=== PATIENT | male | born 1940 | race Caucasian/White ===

== ENCOUNTER 2017-09-24 10:48 | Observation (INO) | payer MEDICARE, MEDICAID ==
[~2017-09-24] VITALS: Ht 182.9 cm; Wt 76.7 kg
[~2017-09-24 10:48] MED LIST: ACETAMINOPHEN325 M1 PO; AMBIEN 10 MG TA10 MG PO; ATIVAN1 MG PO; CLARITIN10 M2 PO; DEBROX OTIC; FISH OIL 1,0001 EAC5 PO; LISINOPRIL5 MG PO; LOPERAMIDE 2 MG2 M1 PO; LOPID600 MG PO; MULTIVITAMINS PO; PRILOSEC 20 MG20 MG PO; SAW PALMETTO500 MG PO; TOPROL XL50 MG PO; VICODIN PO
[2017-09-24 10:53] VITALS: BP 129/81
[2017-09-24 11:22] LABS: ABSOLUTE EOSINOPHILS 0.1 thou/uL (0.0-0.7); ABSOLUTE LYMPHOCYTES 3.2 thou/uL (0.8-5.3); ABSOLUTE MONOCYTES 1.1 thou/uL (0.0-1.2); ABSOLUTE NEUTROPHILS 4.3 thou/uL (1.6-8.1); BASOPHILS 0.6 %; EOSINOPHILS 1.5 %; HEMATOCRIT 46.4 % (42.0-52.0); LYMPHOCYTES 36.2 %; MCH 32.3 pg (26.0-34.0); MCHC 34.5 g/dL (28.0-37.0); MCV 93.7 fL (80.0-100.0); MONOCYTES 12.9 %; NUCLEATED RBCS 0 /100WBC; PLATELET COUNT* 163 thou/uL (150-400); POLYS 48.8 %; RBC 4.95 mil/uL (4.50-6.00); RDW-CV 13.2 % (10.5-14.5); WBC 8.8 thou/uL (4.0-11.0)
[2017-09-24 11:35] LABS: APTT 26.7 Seconds (25.0-31.3); INR 1.1; PROTIME 10.7 Seconds (9.20-11.50)
[2017-09-24 11:42] LABS: ANION GAP 8 mmol/L (7-16); BUN 11 mg/dL (7-18); CALCIUM 9.6 mg/dL (8.5-10.1); CHLORIDE 105 mmol/L (98-107); CO2 27 mmol/L (21-32); CREATININE 0.9 mg/dL (0.6-1.3); GLUCOSE 120 mg/dL (70-99); POTASSIUM 3.9 mmol/L (3.5-5.1); SODIUM 140 mmol/L (136-145)
[2017-09-24 12:04] LABS: ALBUMIN 3.5 g/dL (3.4-5.0); ALKALINE PHOSPHATASE 69 U/L (46-116); CK-MB MASS 0.8 ng/mL (<0.5-3.6); LIPASE 178 U/L (73-393); MAGNESIUM 1.9 mg/dL (1.8-2.4); NT-PRO BRAIN NAT PEPTIDE 577 pg/mL (<300); SGOT 24 U/L (15-37); SGPT 32 U/L (30-65); TOTAL BILIRUBIN 0.6 mg/dL (<0.1-1.0); TOTAL PROTEIN 7.5 g/dL (6.4-8.2); TROPONIN-I LEVEL <0.06 ng/mL (<0.06)
[2017-09-24 14:03] VITALS: BP 143/80
[2017-09-24 14:29] VITALS: BP 149/72
--- NOTE | 2017-09-24 14:34 | EKG ---
[place] [address] ELECTROCARDIOGRAM REPORT Name: FAN NEW Room: [address] IN ..#: [id number] Admission: 09/24/17 Attend Phys: Fan Garcia MD Discharge: Date of : 38 Report #: [id number] THIS REPORT FOR: //name// [facility] ED Test Date: 2017-09-24 Test Time: 11:08:17 Pat Name: FAN NEW Department: Room: Gender: Emergency Veterinary Assistant: Jamie CASTELLON : 1940 Requested By: Bony Johnson Order Number: [id number] MD: Jaden Beach Measurements Intervals [place] Rate: 116 P: ID: QRS: 67 QRSD: 129 T: -29 QT: 329 QTc: 458 Interpretive Statements Atrial fibrillation Ventricular bigeminy Right bundle branch block Compared to ECG 02/17/2008 19:45:06 Ventricular premature complex(es) now present Right bundle-branch block now present Sinus tachycardia no longer present Right-axis deviation no longer present Incomplete right bundle-branch block no longer present Electronically Signed On 09-24-2017 14:34:14 CDT by Jaden Beach [email or web address] <ELECTRONICALLY SIGNED> By: Jaden Beach MD, FACC 09/24/17 1434 1108 1108 Jaden Beach MD, FAC /EPI
[2017-09-24 15:35] VITALS: BP 148/63
[2017-09-24 20:00] VITALS: BP 157/70
[2017-09-25] VITALS: BP 114/73
[2017-09-25 04:00] VITALS: BP 124/77
[2017-09-25 05:29] LABS: CHOLESTEROL 91 mg/dL (<200); HDL CHOLESTEROL 24 mg/dL (>40); LDL CHOLESTEROL 52 mg/dL (<100); TC:HDL 3.8 Ratio (Not establshd); TRIGLYCERIDE 78 mg/dL (<150); VLDL 16 mg/dL (<40)
[2017-09-25 05:36] LABS: SERUM ASSESSMENT Clear
[2017-09-25 08:00] VITALS: BP 132/77
[2017-09-25] MEDS ORDERED: XARELTO15 MG PO (11:48)
[2017-09-25] MEDS ORDERED: TUMS PO (11:49)
[2017-09-25] MEDS ORDERED: ASPIR 8181 MG PO (11:49)
[2017-09-25 11:50] VITALS: BP 132/77
== END 2017-09-25 12:28 | disposition short-term general hospital (02) ==
LOC: M.ERS 10:48 → M.TBA-ER 13:00 → M.2W 13:00
PROVIDERS: Family Medicine; ADMIT Internal Medicine
DX: R07.9 Chest pain, unspecified (principal); I10 Essential (primary) hypertension; E78.5 Hyperlipidemia, unspecified; K21.9 Gastro-esophageal reflux disease without esophagitis; F03.90 Unspecified dementia, unspecified severity, without behavioral disturbance, psychotic disturbance, mood disturbance, and anxiety; F17.210 Nicotine dependence, cigarettes, uncomplicated; Z72.89 Other problems related to lifestyle; Z86.718 Personal history of other venous thrombosis and embolism; Z90.89 Acquired absence of other organs; Z98.890 Other specified postprocedural states

== ENCOUNTER 2018-01-08 07:20 | Emergency (ER) | payer MEDICARE, MEDICAID ==
[~2018-01-08] VITALS: Ht 180.3 cm; Wt 74.8 kg
[~2018-01-08 07:20] MED LIST changes: +ASPIR 8181 MG PO; +TUMS PO; +XARELTO15 MG PO
[2018-01-08] MEDS ORDERED: NITROGLYCERIN0.4 MG SUBLING (07:36)
[2018-01-08 07:40] LABS: ABSOLUTE BASOPHILS 0.1 thou/uL (0.0-0.2); ABSOLUTE EOSINOPHILS 0.4 thou/uL (0.0-0.7); ABSOLUTE LYMPHOCYTES 3.5 thou/uL (0.8-5.3); ABSOLUTE MONOCYTES 0.6 thou/uL (0.0-1.2); ABSOLUTE NEUTROPHILS 4.2 thou/uL (1.6-8.1); BASOPHILS 0.7 %; EOSINOPHILS 4.3 %; HEMATOCRIT 39.9 % (42.0-52.0); HEMOGLOBIN 13.8 gm/dL (14.0-18.0); LYMPHOCYTES 39.7 %; MCH 32.9 pg (26.0-34.0); MCHC 34.5 g/dL (28.0-37.0); MCV 95.2 fL (80.0-100.0); MONOCYTES 7.3 %; MPV 8.7 fl. (7.2-11.1); NUCLEATED RBCS 0 /100WBC; PLATELET COUNT* 227 thou/uL (150-400); RBC 4.19 mil/uL (4.50-6.00); RDW-CV 13.5 % (10.5-14.5); WBC 8.8 thou/uL (4.0-11.0)
[2018-01-08 07:51] LABS: INR 1.3; PROTIME 13.6 Seconds (9.20-11.50)
[2018-01-08 07:58] LABS: CREATININE 0.9 mg/dL (0.6-1.3); POTASSIUM 3.4 mmol/L (3.5-5.1)
[2018-01-08 08:02] LABS: ALBUMIN 3.5 g/dL (3.4-5.0); TOTAL BILIRUBIN 0.3 mg/dL (<0.1-1.0); TOTAL PROTEIN 7.6 g/dL (6.4-8.2)
--- NOTE | 2018-01-08 11:05 | EKG ---
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: : 1940 Requested By: Bony Johnson Order Number: [id number] MD: Tyler Cabrales Measurements Intervals [place] Rate: 66 P: 44 MI: 186 QRS: 54 QRSD: 138 T: 1 QT: 442 QTc: 464 Interpretive Statements Sinus rhythm Right bundle branch block Compared to ECG 09/24/2017 11:08:17 Atrial fibrillation no longer present Ventricular premature complex(es) no longer present Electronically Signed On 01-08-2018 11:05:31 CDT by Tyler Cabrales [email or web address] <ELECTRONICALLY SIGNED> By: Tyler Cabrales MD, [facility] 01/08/18 1105 4 4 Tyler Cabrales MD, FAC /EPI
[2018-01-08 12:07] VITALS: BP 168/78
== END 2018-01-08 12:07 | disposition home or self-care (01) ==
LOC: M.ERS 07:20
PROVIDERS: Family Medicine
DX: R20.2 Paresthesia of skin (principal); K21.9 Gastro-esophageal reflux disease without esophagitis; E78.5 Hyperlipidemia, unspecified; I10 Essential (primary) hypertension; Z90.49 Acquired absence of other specified parts of digestive tract; Z86.718 Personal history of other venous thrombosis and embolism

== ENCOUNTER 2019-03-22 20:57 | Emergency (ER) | payer MEDICARE, MEDICAID ==
[~2019-03-22] VITALS: Ht 182.9 cm; Wt 89.0 kg
[~2019-03-22 20:57] MED LIST changes: +NITROGLYCERIN0.4 MG SUBLING
[2019-03-22] MEDS ORDERED: GABAPENTIN600 M1 PO (21:12)
[2019-03-22] MEDS ORDERED: MELATONIN5 MG SUBLING (21:13)
[2019-03-22] MEDS ORDERED: VITAMIN B-121000 MC2 (21:14)
[2019-03-22] MEDS ORDERED: XARELTO20 MG PO (21:14)
[2019-03-22] MEDS ORDERED: VITAMIN D22000 UNIT PO (21:14)
[2019-03-22 21:30] LABS: HEMATOCRIT 43.3 % (42.0-52.0); HEMOGLOBIN 15.1 gm/dL (14.0-18.0); MCH 32.7 pg (26.0-34.0); MCHC 34.9 g/dL (28.0-37.0); MCV 93.7 fL (80.0-100.0); MPV 9.2 fl. (7.2-11.1); RBC 4.62 mil/uL (4.50-6.00)
[2019-03-22 21:38] LABS: CALCIUM 9.2 mg/dL (8.5-10.1); CREATININE 1.1 mg/dL (0.6-1.3)
[2019-03-22] MEDS ORDERED: FLEXERIL PO (23:00)
[2019-03-22 23:27] VITALS: BP 175/89
== END 2019-03-22 23:27 | disposition home or self-care (01) ==
LOC: M.ERS 20:57
PROVIDERS: Emergency Medicine Emergency Medical Services
DX: S76.912A Strain of unspecified muscles, fascia and tendons at thigh level, left thigh, initial encounter (principal); F03.90 Unspecified dementia, unspecified severity, without behavioral disturbance, psychotic disturbance, mood disturbance, and anxiety; K21.9 Gastro-esophageal reflux disease without esophagitis; I10 Essential (primary) hypertension; E78.5 Hyperlipidemia, unspecified; D64.9 Anemia, unspecified; Z86.718 Personal history of other venous thrombosis and embolism; Z79.82 Long term (current) use of aspirin; Z79.899 Other long term (current) drug therapy; Z90.89 Acquired absence of other organs; X58.XXXA Exposure to other specified factors, initial encounter; Y93.89 Activity, other specified; Y92.89 Other specified places as the place of occurrence of the external cause; Y99.8 Other external cause status

== ENCOUNTER 2019-06-12 08:46 | Inpatient (IN) | payer MEDICARE, MEDICAID ==
[~2019-06-12] VITALS: Ht 182.9 cm; Wt 86.6 kg
[~2019-06-12 08:46] MED LIST changes: +FLEXERIL PO; +GABAPENTIN600 M1 PO; +LISINOPRIL20 MG PO; -LISINOPRIL5 MG PO; +MELATONIN5 MG SUBLING; +VITAMIN B-121000 MC2; +VITAMIN D22000 UNIT PO; +XARELTO20 MG PO
[2019-06-12 08:47] VITALS: BP 180/81
[2019-06-12] MEDS ORDERED: LORATIDINE 10 M10 M1 PO (08:53)
[2019-06-12 09:28] LABS: HEMATOCRIT 41.9 % (42.0-52.0); HEMOGLOBIN 14.7 gm/dL (14.0-18.0); MCH 32.9 pg (26.0-34.0); MCHC 35.1 g/dL (28.0-37.0); MCV 93.7 fL (80.0-100.0); MPV 9.6 fl. (7.2-11.1); NUCLEATED RBCS 0 /100WBC; PLATELET COUNT* 172 thou/uL (150-400); RBC 4.47 mil/uL (4.50-6.00); RDW-CV 13.4 % (10.5-14.5); WBC 13.7 thou/uL (4.0-11.0)
[2019-06-12 09:50] LABS: CALCIUM 8.6 mg/dL (8.5-10.1); CREATININE 1.3 mg/dL (0.6-1.3); POTASSIUM 3.8 mmol/L (3.5-5.1)
[2019-06-12 09:55] LABS: ALBUMIN 3.7 g/dL (3.4-5.0); MAGNESIUM 1.4 mg/dL (1.8-2.4); TOTAL BILIRUBIN 0.6 mg/dL (<0.1-1.0); TOTAL PROTEIN 7.9 g/dL (6.4-8.2)
[2019-06-12 10:37] LABS: ABSOLUTE LYMPHOCYTES 1.2 thou/uL (0.8-5.3); ABSOLUTE MONOCYTES 0.8 thou/uL (0.0-1.2); ABSOLUTE NEUTROPHILS 11.6 thou/uL (1.6-8.1); PLATELET ESTIMATE ADEQUATE
[2019-06-12 12:22] LABS: URINE BILIRUBIN NEGATIVE (Negative); URINE BLOOD NEGATIVE (Negative); URINE CLARITY CLEAR; URINE COLOR YELLOW; URINE GLUCOSE-RANDOM NEGATIVE (Negative); URINE KETONES NEGATIVE (Negative); URINE LEUKOCYTES-REFLEX NEGATIVE (Negative); URINE NITRITE-REFLEX NEGATIVE (Negative); URINE PROTEIN 2+ (Negative); URINE SPECIFIC GRAVITY >= 1.030 (1.005-1.030); URINE UROBILINOGEN 0.2 E.U./dl (0.2-1.0)
[2019-06-12 12:28] LABS: BACTERIA-REFLEX 1-9 Few /HPF (None Seen); CASTS None Seen /LPF (None Seen); CRYSTALS None Seen /LPF (None Seen); SQUAMOUS 0-3 Few /LPF (0-3); URINE RBC 0-2 Rare /HPF (0-2); URINE WBC-REFLEX 0-5 Rare /HPF (0-5)
[2019-06-12 12:57] VITALS: BP 128/76
[2019-06-12 13:40] VITALS: BP 107/92
--- NOTE | 2019-06-12 13:42 | EKG ---
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: : 1940 Requested By: Elis Villar Order Number: [id number] MD: Orestes Todd Measurements Intervals [place] Rate: 97 P: 74 MN: 197 QRS: 77 QRSD: 127 T: 3 QT: 362 QTc: 460 Interpretive Statements Sinus rhythm Right bundle branch block Baseline wander in lead(s) V2 Compared to ECG 01/08/2018 07:25:22 No significant changes Electronically Signed On 06-12-2019 13:41:14 CDT by Orestes Todd [email or web address] <ELECTRONICALLY SIGNED> By: Orestes Todd MD, [facility] 06/12/19 1341 0912 1 Orestes Todd MD, [facility] /EPI
[2019-06-12 14:06] LABS: INFLUENZA A ANTIGEN Negative (Negative); INFLUENZA B ANTIGEN Negative (Negative)
--- NOTE | 2019-06-12 14:23 | NUR ---
ASSUMED PT CARE REPORT RECEIVED FROM NURSE. PT IS AOX4. ANSWERS ALL HISTORY QUESTIONS WELL. PT STATED THAT HE LIVES IN A [facility] IN [place] WHERE HE FELL IN SLOW MOTION LEAST NIGHT. HE THEN WAS BROUGHT HERE. DENIES PAIN, SOB. PT HAS NO SUPPORT SYSTEM. TRACING SR BBB ON PAINTER HELPER SPRAY. VSS. SEE CHART. NO HIGH TEMPERATURE, NO FEVER, NO COUGH. NO SPUTUM. IV FLUID INFUSING AT 200 PER HOR ORDERED. ON ENHANCED ISO FOR COVIS 19. ON 3 L NC. BED ALARM ON. WILL CONTINUE TO MONITOR PT.
[2019-06-12 15:55] VITALS: BP 151/63
--- NOTE | 2019-06-12 18:31 | NUR ---
PT COMPLAINS OF HEADACHE AT 1750 . TYLENOL GIVEN. SEE EMAR.
--- NOTE | 2019-06-12 18:42 | NUR ---
NO HIGH TEMPERATURE OR FEVER NOTED. PT AMBULATES TO RESTROOM WITH STAND BY ASSIST. ISOLATION MAINTAINED. IV FLUID CONTINUE TO INFUSE AT 20O CC PER HOUR ORDERED. WILL CONTINUE TO MONITOR
[2019-06-12 19:45] VITALS: BP 141/64
[2019-06-13] VITALS: BP 107/45
[2019-06-13 04:00] VITALS: BP 127/62
--- NOTE | 2019-06-13 05:16 | NUR ---
PT SLEPT MOST OF SHIFT. ASSESSMENT DOCUMENTED. MEDS GIVEN PER E-MAR. IV PATENT, FLUIDS FINISHED INFUSING. NO REPORTS OF PAIN. ISOLATION MAINTAINED. FALL PRECAUTIONS IN PLACE. WILL CONTINUE WITH PLAN OF CARE.
[2019-06-13 05:46] LABS: HEMATOCRIT 34.7 % (42.0-52.0); MCH 33.2 pg (26.0-34.0); MCHC 34.9 g/dL (28.0-37.0); MCV 95.2 fL (80.0-100.0); MPV 9.4 fl. (7.2-11.1); RBC 3.65 mil/uL (4.50-6.00); RDW-CV 13.3 % (10.5-14.5); WBC 11.3 thou/uL (4.0-11.0)
[2019-06-13 05:58] LABS: HEMOGLOBIN 12.1 gm/dL (14.0-18.0)
[2019-06-13 06:20] LABS: CALCIUM 7.7 mg/dL (8.5-10.1); CREATININE 0.9 mg/dL (0.6-1.3); POTASSIUM 3.6 mmol/L (3.5-5.1)
[2019-06-13 08:00] VITALS: BP 136/64
[2019-06-13 12:21] VITALS: BP 116/78
[2019-06-13 16:06] VITALS: BP 154/70
--- NOTE | 2019-06-13 18:15 | NUR ---
PT VSS, SR W/BBB ON TELE, A&OX4, NC@3L, STAND BY ASSIST, USES URINAL, HOURLY ROUNDING PERFORMED, POSSESSIONS AND CALL LIGHT WITHIN REACH. COVID-19 RULE OUT/ ENHANCED DROPLET PRECAUTIONS.
[2019-06-13 19:35] VITALS: BP 151/73
[2019-06-14] VITALS: BP 130/54
[2019-06-14 04:00] VITALS: BP 117/60
[2019-06-14 04:57] LABS: CALCIUM 7.8 mg/dL (8.5-10.1); CREATININE 0.9 mg/dL (0.6-1.3); MAGNESIUM 1.8 mg/dL (1.8-2.4); POTASSIUM 3.6 mmol/L (3.5-5.1)
--- NOTE | 2019-06-14 07:29 | NUR ---
PT SLEPT MOST OF SHIFT. ASSESSMENT DOCUMENTED. MEDS GIVEN PER E-MAR. IV PATENT, FLUIDS INFUSING. PT REPORTS LLQ ABD PAIN, BUT DID NOT WANT ANYTING FOR IT. FALL PRECAUTIONS IN PLACE. WILL CONTINUE WITH PLAN OF CARE.
[2019-06-14 08:00] VITALS: BP 157/77
[2019-06-14 11:56] VITALS: BP 155/76
[2019-06-14 16:19] VITALS: BP 134/63
[2019-06-14 20:45] VITALS: BP 154/81
[2019-06-15 00:18] VITALS: BP 151/65
[2019-06-15 04:32] VITALS: BP 150/76
--- NOTE | 2019-06-15 05:10 | NUR ---
PT SLEPT MOST OF SHIFT. ASSESSMENT DOCUMENTED. MEDS GIVEN PER E-MAY. IV PATENT. PT REPORTED LLQ ABD PAIN THIS SHIFT BUT REFUSED HEATING PAD OR MEDICAIONS. FALL PRECAUTIONS IN PLACE. WILL CONTINUE WITH PLAN OF CARE.
[2019-06-15 08:00] VITALS: BP 162/98
--- NOTE | 2019-06-15 11:53 | NUR ---
ASSUMED PT CARE AT 0800, AOX4, UP SBA, O2 SAT 90'S 2L NC. TRACING SR ON TELE. PT COMPLAINS OF CONSTANT LLQ ABDOMINAL PAIN. MEDS GIVEN PER MAR, CALL LIGHT WITHIN REACH, ISO MAINTAIN, PENDING RESULT. WILL CONTINUE TO MONITOR.
[2019-06-15 13:04] VITALS: BP 124/68
--- NOTE | 2019-06-15 15:39 | NUR ---
CM called into Pt's room, Pt did not answer. CM called Mac PÉREZ, per Analilia at [facility], Pt now lives at [facility] [phone], CM attempted to contact [facility], phone keeps ringing busy, CM to continue to call. Per chart, Pt is A&O, independent. CM to continue to try and reach Pt and [facility]. Pt will be ready to dc once covid testing comes back.
[2019-06-15 17:52] VITALS: BP 143/78
[2019-06-15 20:10] VITALS: BP 145/65
[2019-06-16] VITALS: BP 124/53
[2019-06-16 04:00] VITALS: BP 134/52
--- NOTE | 2019-06-16 06:00 | NUR ---
PT IS ABLE TO COMMUNICATE HIS NEEDS TO STAFF EFFECTIVELY. CURRENT PAIN MEDICATION REGIMEN HAS BEEN ADEQUATE FOR CONTROLLING HIS PAIN UP TO THIS TIME. POSSIBLE DISCHARGE LATER TODAY.
[2019-06-16 08:00] VITALS: BP 161/81
[2019-06-16] MEDS ORDERED: MELATONIN5 M1 PO (10:13)
[2019-06-16] MEDS ORDERED: CEFDINIR300 MG PO (10:13)
[2019-06-16] MEDS ORDERED: AZITHROMYCIN500 MG PO (10:13)
[2019-06-16] MEDS ORDERED: MUCINEX600 MG PO (10:13)
[2019-06-16 12:00] VITALS: BP 139/74
--- NOTE | 2019-06-16 13:55 | NUR ---
ASSUMED CARE OF PATIENT THIS AM AT 0730. PATIENT IS ALERT AND ORIENTED X 4. HE C/O LLQ ABD AND SIDE PAIN. TELE SHOWS SR WITH A BBB. PATIENT WAS ON COVID ISOLATION TODAY. DR GAGE IN TO ROUND AND DISCHARGE ORDERS WRITTEN. PATIENT IN THE BED MOST OF THE SHIFT. HE IS UP TO THE BATHROOM WITH STANDBY ASSIST. PATIENT GIVEN TYLENOL COR C/O PAIN.
--- NOTE | 2019-06-16 13:57 | NUR ---
Pt discharging back to [facility], [facility] to transport between 4-430pm. Faxed dc orders and clinical info. Chart copied. Per [facility], no nurse report is needed. Updated nurse
[2019-06-16 14:09] VITALS: BP 139/74
[2019-06-16 14:54] VITALS: BP 139/74
== END 2019-06-16 16:30 | DRG 871 ==
LOC: M.ERS 08:46 → M.TBA-ER 10:48 → M.2W 10:48
PROVIDERS: Personal Emergency Response Attendant; ADMIT Internal Medicine
DX: A41.9 Sepsis, unspecified organism (principal); J12.9 Viral pneumonia, unspecified; J47.0 Bronchiectasis with acute lower respiratory infection; G62.9 Polyneuropathy, unspecified; F03.90 Unspecified dementia, unspecified severity, without behavioral disturbance, psychotic disturbance, mood disturbance, and anxiety; K21.9 Gastro-esophageal reflux disease without esophagitis; E78.5 Hyperlipidemia, unspecified; Z66 Do not resuscitate; I10 Essential (primary) hypertension; R91.8 Other nonspecific abnormal finding of lung field; T42.6X5A Adverse effect of other antiepileptic and sedative-hypnotic drugs, initial encounter; K57.90 Diverticulosis of intestine, part unspecified, without perforation or abscess without bleeding; Y92.89 Other specified places as the place of occurrence of the external cause; Z86.718 Personal history of other venous thrombosis and embolism; Z79.01 Long term (current) use of anticoagulants; Z90.89 Acquired absence of other organs; Z90.49 Acquired absence of other specified parts of digestive tract; Z79.82 Long term (current) use of aspirin; Z79.899 Other long term (current) drug therapy; Z87.891 Personal history of nicotine dependence

== ENCOUNTER → 2019-06-22 | Outpatient (CLI) | payer MEDICARE, MEDICAID ==
[~2019-06-22] MED LIST changes: +AZITHROMYCIN500 MG PO; +CEFDINIR300 MG PO; +LORATIDINE 10 M10 M1 PO; +MELATONIN5 M1 PO; +MUCINEX600 MG PO
[2019-06-22 11:08] LABS: CREATININE 0.9 mg/dL (0.6-1.3)
== END ==
LOC: M.LAB 10:30 → M.MRI 11:30
PROVIDERS: Family Medicine
DX: I67.82 Cerebral ischemia (principal); F03.91 Unspecified dementia, unspecified severity, with behavioral disturbance

== ENCOUNTER 2020-05-16 23:10 | Emergency (ER) | payer MEDICARE, MEDICAID ==
[~2020-05-16] VITALS: Ht 182.9 cm; Wt 90.7 kg
[2020-05-16] MEDS ORDERED: DIFLUCAN100 MG PO (23:48)
[2020-05-16] MEDS ORDERED: ANTIFUNGAL30 GM TOP (23:48)
[2020-05-16] MEDS ORDERED: XARELTO20 MG PO (23:56)
[2020-05-16] MEDS ORDERED: AMBIEN 10 MG TA10 MG PO (23:56)
[2020-05-17 01:00] VITALS: BP 180/85
== END 2020-05-17 01:00 | disposition home or self-care (01) ==
LOC: M.ERS 23:10
DX: B37.89 Other sites of candidiasis (principal); I10 Essential (primary) hypertension; K21.9 Gastro-esophageal reflux disease without esophagitis; I48.91 Unspecified atrial fibrillation; E78.5 Hyperlipidemia, unspecified; Z86.2 Personal history of diseases of the blood and blood-forming organs and certain disorders involving the immune mechanism; Z86.718 Personal history of other venous thrombosis and embolism; Z87.898 Personal history of other specified conditions

== ENCOUNTER 2020-08-18 12:55 | Emergency (ER) | payer MEDICARE, MEDICAID ==
[~2020-08-18] VITALS: Ht 182.9 cm; Wt 89.8 kg
[~2020-08-18 12:55] MED LIST changes: +ANTIFUNGAL30 GM TOP; +DIFLUCAN100 MG PO
[2020-08-18] MEDS ORDERED: CALCIUM500 MG PO (13:14)
[2020-08-18] MEDS ORDERED: LOPERAMIDE 2 MG2 M1 PO (13:15)
[2020-08-18] MEDS ORDERED: NITROSTAT0.4 M1 SUBLING (13:16)
[2020-08-18] MEDS ORDERED: KETOCONAZOLE 2%30 GM TOP (13:17)
[2020-08-18 13:20] LABS: ABSOLUTE BASOPHILS 0.1 thou/uL (0.0-0.2); ABSOLUTE EOSINOPHILS 0.2 thou/uL (0.0-0.7); ABSOLUTE LYMPHOCYTES 2.9 thou/uL (0.8-5.3); ABSOLUTE MONOCYTES 0.6 thou/uL (0.0-1.2); ABSOLUTE NEUTROPHILS 2.5 thou/uL (1.6-8.1); BASOPHILS 0.9 %; EOSINOPHILS 3.6 %; HEMATOCRIT 42.8 % (42.0-52.0); HEMOGLOBIN 14.8 gm/dL (14.0-18.0); LYMPHOCYTES 46.4 %; MCH 32.6 pg (26.0-34.0); MCHC 34.6 g/dL (28.0-37.0); MCV 94.1 fL (80.0-100.0); MONOCYTES 9.3 %; MPV 8.7 fl. (7.2-11.1); NUCLEATED RBCS 0 /100WBC; PLATELET COUNT* 193 thou/uL (150-400); POLYS 39.8 %; RBC 4.55 mil/uL (4.50-6.00); RDW-CV 13.3 % (10.5-14.5); WBC 6.3 thou/uL (4.0-11.0)
[2020-08-18 13:28] LABS: CALCIUM 9.2 mg/dL (8.5-10.1); POTASSIUM 3.8 mmol/L (3.5-5.1)
[2020-08-18 13:33] LABS: ALBUMIN 3.6 g/dL (3.4-5.0); TOTAL BILIRUBIN 0.2 mg/dL (<0.1-1.0); TOTAL PROTEIN 7.8 g/dL (6.4-8.2)
[2020-08-18 14:18] LABS: URINE BILIRUBIN NEGATIVE (Negative); URINE BLOOD NEGATIVE (Negative); URINE CLARITY CLEAR; URINE COLOR YELLOW; URINE GLUCOSE-RANDOM NEGATIVE (Negative); URINE KETONES NEGATIVE (Negative); URINE LEUKOCYTES-REFLEX NEGATIVE (Negative); URINE NITRITE-REFLEX NEGATIVE (Negative); URINE PROTEIN TRACE (Negative); URINE SPECIFIC GRAVITY 1.015 (1.005-1.030); URINE UROBILINOGEN 0.2 E.U./dl (0.2-1.0)
[2020-08-18 16:57] VITALS: BP 173/97
--- NOTE | 2020-08-18 17:46 | EKG ---
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: : 1940 Requested By: Flower Ji Order Number: [id number] MD: Jaden Beach Measurements Intervals [place] Rate: 70 P: [place]: QRS: 55 QRSD: 140 T: 1 QT: 434 QTc: 469 Interpretive Statements Atrial fibrillation Right bundle branch block Baseline wander in lead(s) II,III,aVF Compared to ECG 06/12/2019 09:12:38 Sinus rhythm no longer present Electronically Signed On 08-18-2020 17:46:42 CDT by Jaden Beach [email or web address] <ELECTRONICALLY SIGNED> By: Jaden Beach MD, [facility] 08/18/20 1746 1305 1305 Jaden Beach MD, [facility] /EPI
== END 2020-08-18 17:00 ==
LOC: M.ERS 12:55
PROVIDERS: Physician Assistant
DX: I10 Essential (primary) hypertension (principal); I48.91 Unspecified atrial fibrillation; K21.9 Gastro-esophageal reflux disease without esophagitis; E78.5 Hyperlipidemia, unspecified; Z90.49 Acquired absence of other specified parts of digestive tract; Z86.2 Personal history of diseases of the blood and blood-forming organs and certain disorders involving the immune mechanism; Z86.718 Personal history of other venous thrombosis and embolism

== ENCOUNTER 2020-09-12 03:49 | Inpatient (IN) | payer MEDICARE, MEDICAID ==
[~2020-09-12] VITALS: Ht 182.9 cm; Wt 87.6 kg
[~2020-09-12 03:49] MED LIST changes: +CALCIUM500 MG PO; +KETOCONAZOLE 2%30 GM TOP; +NITROSTAT0.4 M1 SUBLING
[2020-09-12 03:50] VITALS: BP 154/76
[2020-09-12 05:20] LABS: ABSOLUTE BASOPHILS 0.1 thou/uL (0.0-0.2); ABSOLUTE EOSINOPHILS 0.1 thou/uL (0.0-0.7); ABSOLUTE LYMPHOCYTES 2.5 thou/uL (0.8-5.3); ABSOLUTE MONOCYTES 0.8 thou/uL (0.0-1.2); ABSOLUTE NEUTROPHILS 7.6 thou/uL (1.6-8.1); EOSINOPHILS 0.9 %; HEMATOCRIT 40.7 % (42.0-52.0); LYMPHOCYTES 22.5 %; MCH 32.4 pg (26.0-34.0); MCHC 34.4 g/dL (28.0-37.0); MPV 9.4 fl. (7.2-11.1); NUCLEATED RBCS 0 /100WBC; PLATELET COUNT* 170 thou/uL (150-400); POLYS 68.6 %; RBC 4.33 mil/uL (4.50-6.00); RDW-CV 13.5 % (10.5-14.5); WBC 11.1 thou/uL (4.0-11.0)
[2020-09-12 05:32] LABS: CALCIUM 9.2 mg/dL (8.5-10.1); POTASSIUM 4.2 mmol/L (3.5-5.1)
[2020-09-12 05:42] LABS: ALBUMIN 3.9 g/dL (3.4-5.0); TOTAL BILIRUBIN 0.5 mg/dL (<0.1-1.0); TOTAL PROTEIN 8.1 g/dL (6.4-8.2)
[2020-09-12 07:44] VITALS: BP 139/74
[2020-09-12 08:00] VITALS: BP 137/78
--- NOTE | 2020-09-12 10:58 | EKG ---
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: FLORINDA : 1940 Requested By: Elis Villar Order Number: [id number] MD: Tyler Cabrales Measurements Intervals [place] Rate: 73 P: 62 MD: 214 QRS: 73 QRSD: 128 T: 11 QT: 408 QTc: 450 Interpretive Statements Sinus rhythm Borderline prolonged MD interval Right bundle branch block Baseline wander in lead(s) V4 Compared to ECG 08/18/2020 13:05:55 Atrial fibrillation no longer present Electronically Signed On 09-12-2020 10:58:34 CDT by Tyler Cabrales [email or web address] <ELECTRONICALLY SIGNED> By: Tyler Cabrales MD, [facility] 09/12/20 1058 0354 0354 Tyler Cabrales MD, [facility] /EPI
[2020-09-12 16:00] VITALS: BP 139/74
--- NOTE | 2020-09-12 17:25 | CARDNUC ---
[place] [address] CARDIAC NUCLEAR IMAGING REPORT Name: VIRGENFAN Noonan Room: [facility].#: [id number] Admission: 09/12/20 Attend Phys: Dayron Goss Discharge: Date of : 38 Date of Service: 09/12/20 1725 Report #: [id number] THIS REPORT FOR: cc: Ailyn Irby Maggie M. DO Liston, Michael J. MD [facility] ~ APPROVED REPORT Imaging Protocol: Stress Tc-99m/Rest Tc-99m 1 day Study performed: 09/12/2020 09:02:00 Indication: Chest pain Patient Location: In-Patient Room #: 227 Stress Tech: Daisy Main Stress Nurse: Zuleima Ambrosio RN Ht: 6 ft 0 in Wt: 200 lbs BSA: 2.13 m2 BMI: 27.12 Medical History Medical History: Chest pain, Hx AFib, HX DVT, anemia, gerd, RBBB, HX TBI with memory loss, dementia, HTN, HLD, past smoker, weakness, fatigue, wheelchair user, left ABD pain. Medications: ASA 81 mg, Lisinopril, Lopid, Xarelto, Metoprolol, Hydralazine, NTG. Allergies: No known drug allergies Cardiac Risk Factors: Age, HTN, Hyperlipidemia, Past Smoker, HX AFib, RBBB. Previous Cardiac Procedures: None Pretest Chest Pain Characteristics: No chest pain Exercise History: Sedentary/wheelchair required. Physical Disabilities: Wheelchair user, weakness, instability. Meds Held (24 hrs): unknown Resting Data Rest SPECT myocardial perfusion imaging was performed in supine position 30 minutes following the intravenous injection of 8.9 mCi of Tc-99m Sestamibi. Time of rest injection: 9:15 The images were gated to evaluate regional wall motion and calculate left ventricular ejection fraction. Administration Route: IV Administration Site: [place] [address] CARDIAC NUCLEAR IMAGING REPORT Name: FAN NEW Room: [address] IN [facility]#: [id number] Admission: 09/12/20 Attend Phys: Dayron Goss Discharge: Date of : 38 Date of Service: 09/12/20 1725 Report #: [id number] Pharmacologic Stress Pharmacologic stress test was performed by injecting Regadenoson 0.4 mg IV push over 10-15 seconds immediately followed by the intravenous injection of 29.2 mCi of Tc-99m Sestamibi. Time of stress injection: 11:45 Administration Route: IV Administration Site: Left Arm Heart Rate at time of stress injection: 88 bpm. Gated Stress SPECT was performed 45 minutes after stress injection. The images were gated to evaluate regional wall motion and calculate left ventricular ejection fraction. Stress Test Details Stress Test: Pharmacologic stress testing performed using 0.4 mg of regadenoson per 5 mL given IV over 10 seconds. Reason for pharmacologic stress test: Wheelchair user, weakness, instability.. HR Max Heart Rate (APMHR): 139 bpm Resting HR: 84 bpm Target HR (85% APMHR): 118 bpm Max HR Achieved: 94 bpm % of APMHR: 67 Recovery HR: 89 bpm BP Resting BP: 127/69 mmHg Max BP: 91/56 mmHg Recovery BP: 109/67 mmHg ECG Resting ECG: Sinus Rhythm, RBBB Stress ECG: Sinus Rhythm, RBBB ST Change: None Arrhythmia: None Recovery ECG: Sinus Rhythm, RBBB Recovery ST Change: None Recovery Arrhythmia: None Clinical Reason for Termination: Completed protocol Stress Symptoms: Brief dyspnea, dizziness, stomach discomfort, right arm heaviness. Exercise duration: 00 min 00 sec Exercise capacity: 1.00 METs The patient tolerated Lexiscan infusion without significant [place] [address] CARDIAC NUCLEAR IMAGING REPORT Name: FAN NEW Room: [address] IN ..#: [id number] Admission: 09/12/20 Attend Phys: Dayron Goss Discharge: Date of : 38 Date of Service: 09/12/20 1725 Report #: [id number] symptoms. Nurse Comments An 80 year old male inpatient presented for a sitting Lexiscan. Test well tolerated. Recovery unremarkable. Patient was stable and stated he felt better when escorted via wheelchair to Nuclear Medicine for imaging. Stress ECG Conclusion The baseline twelve-lead EKG shows sinus rhythm with right bundle branch block. There were no significant ST segment abnormalities. EKGs obtained during and post Lexiscan infusion show sinus rhythm with no significant ST segment changes when compared to baseline. There were no significant arrhythmias. Study Quality Study: Good Artifact: Mild Diaphragmatic artifact Study Data At rest, the left ventricular ejection fraction was 84%.. Post stress, the left ventricular ejection was 76%.. TID = 1.14. Perfusion Perfusion images obtained at rest and post Lexiscan stress show mild photopenia in the inferior wall that is far more pronounced on the resting and stress images. Wall motion in this region appears normal on gated studies suggesting diaphragmatic attenuation artifact. No other significant fixed or reversible defects are identified. Wall Motion Normal left ventricular wall motion. Nuclear Conclusion ECG Findings: negative for ischemia Clinical Findings: negative for ischemia Nuclear Findings: negative for ischemia Exercise Capacity: not assessed Left Ventricular Function: normal Risk Study: low Perfusion images show no defect to suggest stress-induced ischemia. Left ventricular systolic function is normal on gated studies. This is a low risk study. <Conclusion> [place] [address] CARDIAC NUCLEAR IMAGING REPORT Name: FAN NEW Room: [address] IN ..#: [id number] Admission: 09/12/20 Attend Phys: Dayron Goss Discharge: Date of : 38 Date of Service: 09/12/20 1725 Report #: [id number] The baseline twelve-lead EKG shows sinus rhythm with right bundle branch block. There were no significant ST segment abnormalities. EKGs obtained during and post Lexiscan infusion show sinus rhythm with no significant ST segment changes when compared to baseline. There were no significant arrhythmias. <ELECTRONICALLY SIGNED> By: Jaden Beach MD, FACC 09/12/201724 24 24 Jaden Beach MD, FACC /INF
[2020-09-12 19:30] VITALS: BP 114/75
[2020-09-13] VITALS (7 sets, daily range): BP systolic 78–152; BP diastolic 40–82
[2020-09-13 04:41] LABS: ABSOLUTE EOSINOPHILS 0.1 thou/uL (0.0-0.7); ABSOLUTE LYMPHOCYTES 3.4 thou/uL (0.8-5.3); ABSOLUTE MONOCYTES 0.8 thou/uL (0.0-1.2); ABSOLUTE NEUTROPHILS 4.3 thou/uL (1.6-8.1); BASOPHILS 0.6 %; EOSINOPHILS 1.6 %; HEMATOCRIT 40.9 % (42.0-52.0); HEMOGLOBIN 14.2 gm/dL (14.0-18.0); LYMPHOCYTES 39.5 %; MCH 32.7 pg (26.0-34.0); MCHC 34.7 g/dL (28.0-37.0); MCV 94.3 fL (80.0-100.0); MONOCYTES 9.3 %; MPV 9.7 fl. (7.2-11.1); NUCLEATED RBCS 0 /100WBC; PLATELET COUNT* 160 thou/uL (150-400); RBC 4.33 mil/uL (4.50-6.00); RDW-CV 13.3 % (10.5-14.5); WBC 8.7 thou/uL (4.0-11.0)
[2020-09-13 04:52] LABS: CALCIUM 9.3 mg/dL (8.5-10.1); CREATININE 1.1 mg/dL (0.6-1.3); POTASSIUM 3.5 mmol/L (3.5-5.1)
--- NOTE | 2020-09-13 09:24 | NUR ---
CM ASSESSMENT: PT A&O, BUT FORGETFUL. PT RESIDES AT [facility] IN [place]. PT USES 0 DME FOR MOBILITY. PT HAS PAST HX OF HH. PT HAS PAST HX OF SNF AT [facility]. PLAN AT D/C IS FOR THE PT TO RETURN TO [facility] IN [place]. CM SPOKE TO [facility] SECURITY CONSULTANT AND SHE CONFIRMS ABILITY TO ACCEPT PT AT D/C PENDING D/C ORDERS AND NO SIGNIFICANT CHANGES IN PT'S MOBILITY OR HIGHER LEVEL NURSING NEEDS. CM WILL REMAIN AVAILABLE TO ASSIST AND FOLLOW NEEDED. [facility] ([place]) PHONE/FAX: [phone]
--- NOTE | 2020-09-13 10:05 | NUR ---
ASSUMED CARE OF PT THIS AM AROUND 07- EYEWEAR MANUFACTURING TECH IN PLACE ORDERED, TRACING SR/1ST DEGREE/BBB- UPON ASSESSMENT PT NOTED TO BE RESTING IN BED- PT A&O X4, FORGETFULL- CONT OF BOWEL AND BLADDER, USING URINAL AT BED SIDE- LCTA, DYSPNEA NOTED ON EXERTION- VSS, O2 SAT 95% ON RA- ABD SOFT/ROUND/TENDER TO LEFT UPPER ABD, BS X4 QUADS- LAST BM REPORTED X2 DAYS AGO- IV NOTED TO LEFT FA INTACT AND SL- TRACE EDEMA NOTED TO BLE- ABD CT COMPLETED THIS AM AND NOTED TO SHOW RIB FRACTURES TO 6HT AND 7TH RIB, RESULTS SENT TO PER YOU CALL- CALL LIGHT AND PERSONAL BELONGINGS WITH IN REACH- HOURLY ROUNDS IN PLACE R/T SAFETY/NEEDS- ALL NEEDS MET AT THIS TIME
[2020-09-14 04:00] VITALS: BP 130/68
--- NOTE | 2020-09-14 04:12 | NUR ---
ASSUMED PT CARE AT APPROX. 1915. PT IS A/OX4. 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 VSS. PT C/O HEADACHE. MEDICATIONS ADMINISTERED PRESCRIBED. SEE EMAR. PT RESTED DURING THE NIGHT. PT USED URINAL AT BEDSIDE. NO ACUTE CHANGES. FALL PRECAUTIONS IN PLACE SAFETY. CALL LIGHT WITHIN REACH. ASSESSMENTS COMPLETE CHARTED. HOURLY ROUNDS COMPLETED. PT CURRENTLY RESTING IN BED. WILL CONT. TO MONITOR.
[2020-09-14 08:00] VITALS: BP 131/82
[2020-09-14 11:40] VITALS: BP 123/76
[2020-09-14] MEDS ORDERED: ASPERCREME1 EACH TOP (11:54)
[2020-09-14 13:13] VITALS: BP 123/76
[2020-09-14 13:28] VITALS: BP 123/76
--- NOTE | 2020-09-14 13:35 | NUR ---
Pt discharging back to [facility] today, Cm provided nurse with report number. [facility] to pickling operator and transport between 3-30pm. Faxed dc orders[facility], Pt is open and receptive.
[2020-09-14 13:40] VITALS: BP 123/76
--- NOTE | 2020-09-14 13:41 | NUR ---
DISCHARGE ORDERS RECEIVED. 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 ALERT BUT FORGETFUL. REPORTING HAVING LEFT SIDE RIB/UPPER ABD DISCOMORT - GIVEN 2 TYLENOL TO ASSIST WITH PAIN CONTORL - LIDOCAINE PATCH PLACED EARLIER. TOLERATING DIET WITH NO COMPLAINTS OF NASUEA. DISCHARGE ORDERS RECEIVED. REPORT CALLED GIVENT TO FARHANA MYLES IN [facility] - [phone] GIVEN TO ADA SANTOS) WHOM VERBALIZED UNDERSTANDING. W/C VAN SCHEDULED FOR HEAD TRIMMER [id number] PER CASE MGMT.
--- NOTE | 2020-09-14 14:05 | NUR ---
REPORT CALLED TO LUCY WITH [facility] - REVIEWED DISCHARGE MEDICATION, LUCY STATING ANY NEW PRESCRIPTIONS NEED TO BE FAXED TO [facility] AT [phone] REPORTING PATIENT HAVING NO MONEY TO PAY OR MEANS TO DRAMATIC ARTS HISTORIAN MEDICATION/MEDS FROM ANY OTHER PHARMACY. CALL PLACED TO DR VELÁZQUEZ TO NOTIFY.
== END 2020-09-14 15:52 | disposition home health service (06) | DRG 184 ==
LOC: M.ERS 03:49 → M.TBA-ER 05:48 → M.2W 07:27
PROVIDERS: Internal Medicine; Personal Emergency Response Attendant; ADMIT Internal Medicine; ATTEND Internal Medicine
DX: S22.42XA Multiple fractures of ribs, left side, initial encounter for closed fracture (principal); D68.69 Other thrombophilia; I48.20 Chronic atrial fibrillation, unspecified; Z20.822 Contact with and (suspected) exposure to COVID-19; F03.90 Unspecified dementia, unspecified severity, without behavioral disturbance, psychotic disturbance, mood disturbance, and anxiety; K21.9 Gastro-esophageal reflux disease without esophagitis; E78.5 Hyperlipidemia, unspecified; I48.0 Paroxysmal atrial fibrillation; I10 Essential (primary) hypertension; I20.9 Angina pectoris, unspecified; G62.9 Polyneuropathy, unspecified; E78.00 Pure hypercholesterolemia, unspecified; Z66 Do not resuscitate; X58.XXXA Exposure to other specified factors, initial encounter; Y93.89 Activity, other specified; Z86.718 Personal history of other venous thrombosis and embolism; Z86.73 Personal history of transient ischemic attack (TIA), and cerebral infarction without residual deficits; Z90.49 Acquired absence of other specified parts of digestive tract; Z79.899 Other long term (current) drug therapy; Z79.82 Long term (current) use of aspirin; Z87.891 Personal history of nicotine dependence; Z79.01 Long term (current) use of anticoagulants; Y92.89 Other specified places as the place of occurrence of the external cause; Y99.8 Other external cause status

== ENCOUNTER 2020-11-28 06:45 | Emergency (ER) | payer MEDICARE, MEDICAID ==
[~2020-11-28] VITALS: Ht 182.9 cm; Wt 88.5 kg
[~2020-11-28 06:45] MED LIST changes: +ASPERCREME1 EACH TOP
[2020-11-28] MEDS ORDERED: NORVASC10 MG PO (07:05)
[2020-11-28] MEDS ORDERED: ACETAMINOPHEN325 M1 PO (07:08)
[2020-11-28 07:38] LABS: ABSOLUTE BASOPHILS 0.1 thou/uL (0.0-0.2); ABSOLUTE EOSINOPHILS 0.1 thou/uL (0.0-0.7); ABSOLUTE LYMPHOCYTES 2.9 thou/uL (0.8-5.3); ABSOLUTE MONOCYTES 0.7 thou/uL (0.0-1.2); ABSOLUTE NEUTROPHILS 3.8 thou/uL (1.6-8.1); EOSINOPHILS 1.5 %; HEMATOCRIT 39.8 % (42.0-52.0); HEMOGLOBIN 13.5 gm/dL (14.0-18.0); MCH 31.8 pg (26.0-34.0); MCHC 33.9 g/dL (28.0-37.0); MCV 93.9 fL (80.0-100.0); MPV 9.1 fl. (7.2-11.1); NUCLEATED RBCS 0 /100WBC; PLATELET COUNT* 182 thou/uL (150-400); POLYS 50.5 %; RBC 4.24 mil/uL (4.50-6.00); RDW-CV 13.1 % (10.5-14.5); WBC 7.6 thou/uL (4.0-11.0)
[2020-11-28 07:50] LABS: CALCIUM 9.7 mg/dL (8.5-10.1); CREATININE 1.2 mg/dL (0.6-1.3); POTASSIUM 4.3 mmol/L (3.5-5.1)
[2020-11-28 07:54] LABS: ALBUMIN 4.2 g/dL (3.4-5.0); TOTAL BILIRUBIN 0.7 mg/dL (<0.1-1.0); TOTAL PROTEIN 8.4 g/dL (6.4-8.2)
[2020-11-28 08:52] LABS: URINE BILIRUBIN NEGATIVE (Negative); URINE BLOOD NEGATIVE (Negative); URINE CLARITY CLEAR; URINE COLOR YELLOW; URINE GLUCOSE-RANDOM NEGATIVE (Negative); URINE KETONES NEGATIVE (Negative); URINE LEUKOCYTES-REFLEX NEGATIVE (Negative); URINE NITRITE-REFLEX NEGATIVE (Negative); URINE PROTEIN TRACE (Negative); URINE SPECIFIC GRAVITY 1.025 (1.005-1.030); URINE UROBILINOGEN 0.2 E.U./dl (0.2-1.0)
[2020-11-28 10:35] VITALS: BP 168/84
--- NOTE | 2020-11-28 12:29 | EKG ---
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
== END 2020-11-28 10:36 | disposition home or self-care (01) ==
LOC: M.ERS 06:45
PROVIDERS: Emergency Medicine Emergency Medical Services
DX: R53.1 Weakness (principal); Z20.822 Contact with and (suspected) exposure to COVID-19; R09.89 Other specified symptoms and signs involving the circulatory and respiratory systems; E78.00 Pure hypercholesterolemia, unspecified; I10 Essential (primary) hypertension; Z90.49 Acquired absence of other specified parts of digestive tract; Z79.899 Other long term (current) drug therapy; Z79.82 Long term (current) use of aspirin

== ENCOUNTER 2020-12-22 08:52 | Inpatient (IN) | payer MEDICARE, MEDICAID ==
[~2020-12-22] VITALS: Ht 182.9 cm; Wt 79.4 kg
[~2020-12-22 08:52] MED LIST changes: +NORVASC10 MG PO
[2020-12-22 08:53] VITALS: BP 124/57
[2020-12-22] MEDS ORDERED: CARVEDILOL6.25 M1 PO (08:56)
[2020-12-22] MEDS ORDERED: REMERON30 MG PO (08:57)
[2020-12-22] MEDS ORDERED: TRAMADOL 50 MG50 MG PO (08:58)
[2020-12-22 09:54] LABS: ABSOLUTE EOSINOPHILS 0.1 thou/uL (0.0-0.7); ABSOLUTE LYMPHOCYTES 1.9 thou/uL (0.8-5.3); ABSOLUTE MONOCYTES 0.6 thou/uL (0.0-1.2); ABSOLUTE NEUTROPHILS 7.7 thou/uL (1.6-8.1); BASOPHILS 0.4 %; EOSINOPHILS 1.1 %; HEMATOCRIT 35.1 % (42.0-52.0); HEMOGLOBIN 11.9 gm/dL (14.0-18.0); LYMPHOCYTES 18.5 %; MCH 32.5 pg (26.0-34.0); MCV 95.7 fL (80.0-100.0); MONOCYTES 5.6 %; MPV 9.9 fl. (7.2-11.1); NUCLEATED RBCS 0 /100WBC; PLATELET COUNT* 154 thou/uL (150-400); POLYS 74.4 %; RBC 3.67 mil/uL (4.50-6.00); RDW-CV 13.2 % (10.5-14.5); WBC 10.3 thou/uL (4.0-11.0)
[2020-12-22 09:58] LABS: CALCIUM 8.3 mg/dL (8.5-10.1); CREATININE 2.8 mg/dL (0.6-1.3); POTASSIUM 3.8 mmol/L (3.5-5.1)
[2020-12-22 10:02] LABS: ALBUMIN 3.3 g/dL (3.4-5.0); TOTAL BILIRUBIN 0.5 mg/dL (<0.1-1.0); TOTAL PROTEIN 7.4 g/dL (6.4-8.2)
[2020-12-22 11:09] LABS: URINE BILIRUBIN NEGATIVE (Negative); URINE BLOOD NEGATIVE (Negative); URINE CLARITY CLEAR; URINE COLOR YELLOW; URINE GLUCOSE-RANDOM NEGATIVE (Negative); URINE KETONES NEGATIVE (Negative); URINE LEUKOCYTES-REFLEX NEGATIVE (Negative); URINE NITRITE-REFLEX NEGATIVE (Negative); URINE PROTEIN 1+ (Negative)
[2020-12-22 14:17] VITALS: BP 94/43
[2020-12-22 15:14] VITALS: BP 126/51
[2020-12-22 20:15] VITALS: BP 113/53
[2020-12-23 04:13] VITALS: BP 115/54
[2020-12-23 04:21] LABS: HEMATOCRIT 31.6 % (42.0-52.0); HEMOGLOBIN 10.8 gm/dL (14.0-18.0); MCH 32.7 pg (26.0-34.0); MCV 96.2 fL (80.0-100.0); RBC 3.29 mil/uL (4.50-6.00)
[2020-12-23 04:45] LABS: ALBUMIN 2.7 g/dL (3.4-5.0); CALCIUM 8.1 mg/dL (8.5-10.1); MAGNESIUM 1.5 mg/dL (1.8-2.4); POTASSIUM 4.1 mmol/L (3.5-5.1); TOTAL BILIRUBIN 0.2 mg/dL (<0.1-1.0); TOTAL PROTEIN 6.3 g/dL (6.4-8.2)
[2020-12-23 04:46] LABS: CREATININE 1.5 mg/dL (0.6-1.3)
--- NOTE | 2020-12-23 06:25 | NUR ---
PT HAS SLEPT WELL OVERNIGHT. UP WITH GB, WALKER AND MIN ASSIST TO BR TO VOID, NO BM REPORTED OVERNIGHT. AOX4. LHAND IVF INFUSING PER PUMP, ABX GIVEN ORDERED. ROOM AIR. HAS NOT HAD ANY COMPLAINTS OF PAIN THIS SHIFT. AM LABS. PT/OT TO CONSULT. BED ALARM ON FOR SAFETY, CALL LITE IN EASY REACH.
--- NOTE | 2020-12-23 11:24 | NUR ---
Nutrition: Seen r/t high risk screening. Noted with reports of weight loss x 3 months and decreased appetite >1 wk. Per intake records, reports of poor appetite over "last few days." Unknown wt hx and degree of weight loss. Admitted wtih dx PNA, VENKATA/CKDIII, dehydration. General weakness/malaise. Noted with electrolyte imbalances, replacement in progress. With R kidney mass/cyst. On IV ABT, ASA and mirtazapine. On regular diet. Refused meal last noc, no other intakes reported since admit. Anticipate appetite to return with progression of ABT therapy and repletion of electrolytes. BMI 23.7, WNL. Consider mild nutrition risk at this time. Follow intake trends, follow up 12/27/20.
--- NOTE | 2020-12-23 14:55 | NUR ---
Pt is A&O. Resides at [facility]. Pt uses a walker or wc for mobility. Pt was on [facility] prior to this hospitalization. Hx of SNF at [facility]. Pt here with PNA and renal failure. Anticipate dc in a few days.
--- NOTE | 2020-12-23 20:04 | NUR ---
PATIENT HAD A QUIET DAY. WAS UP TO CHAIR, AND ANBULATED IN HALLWAY WITH PT. PATIENT DOES NOT COMPLAIN. USES URINAL ON HIS OWN. IV SITE LH PATIENT. IV FLUIDS INFUSE WITHOUT PROBLEM.
[2020-12-23 20:18] VITALS: BP 123/54
--- NOTE | 2020-12-24 05:30 | NUR ---
PT SLEPT WELL OVERNIGHT. LH IVF INFUSING PER PUMP, ABX GIVEN ORDERED. AM LABS. AO, ABLE TO USE CALL LITE AND MAKE NEEDS KNOWN. UP WITH WITH WALKER AND SBA. USING URINAL TO VOID OVERNIGHT. DENIES PAIN OR PROBLEMS.
[2020-12-24 08:00] VITALS: BP 143/85
[2020-12-24 08:44] LABS: ABSOLUTE EOSINOPHILS 0.2 thou/uL (0.0-0.7); ABSOLUTE LYMPHOCYTES 2.2 thou/uL (0.8-5.3); ABSOLUTE MONOCYTES 0.6 thou/uL (0.0-1.2); ABSOLUTE NEUTROPHILS 4.8 thou/uL (1.6-8.1); BASOPHILS 0.6 %; EOSINOPHILS 2.6 %; HEMATOCRIT 36.1 % (42.0-52.0); HEMOGLOBIN 12.2 gm/dL (14.0-18.0); LYMPHOCYTES 28.3 %; MCH 32.3 pg (26.0-34.0); MCHC 33.9 g/dL (28.0-37.0); MCV 95.5 fL (80.0-100.0); MONOCYTES 7.4 %; MPV 10.4 fl. (7.2-11.1); NUCLEATED RBCS 0 /100WBC; PLATELET COUNT* 188 thou/uL (150-400); POLYS 61.1 %; RBC 3.78 mil/uL (4.50-6.00); RDW-CV 13.1 % (10.5-14.5); WBC 7.9 thou/uL (4.0-11.0)
[2020-12-24 08:54] LABS: ALBUMIN 3.1 g/dL (3.4-5.0); CALCIUM 8.6 mg/dL (8.5-10.1); TOTAL BILIRUBIN 0.3 mg/dL (<0.1-1.0); TOTAL PROTEIN 7.1 g/dL (6.4-8.2)
--- NOTE | 2020-12-24 12:48 | NUR ---
MAGNESIUM 400 MG PO ADMINISTERED
--- NOTE | 2020-12-24 14:35 | NUR ---
MAGNESIUM 400 MG PO ADMINISTERED
[2020-12-24 16:27] VITALS: BP 124/79
--- NOTE | 2020-12-24 19:00 | NUR ---
PT. AOX4, VSS, DENIES PAIN OR DISCOMFORT. CALL LIGHT AND PERSONAL BELONGINGS PLACED WITHIN REACH. PT. IN BED, IN STABLE CONDITION, AT SHIFT CHANGE.
[2020-12-24 19:35] VITALS: BP 143/78
[2020-12-25 04:04] LABS: ABSOLUTE EOSINOPHILS 0.2 thou/uL (0.0-0.7); ABSOLUTE LYMPHOCYTES 2.2 thou/uL (0.8-5.3); ABSOLUTE MONOCYTES 0.6 thou/uL (0.0-1.2); ABSOLUTE NEUTROPHILS 3.4 thou/uL (1.6-8.1); BASOPHILS 0.6 %; EOSINOPHILS 3.2 %; HEMATOCRIT 37.7 % (42.0-52.0); LYMPHOCYTES 34.7 %; MCH 32.5 pg (26.0-34.0); MCHC 34.6 g/dL (28.0-37.0); MCV 93.8 fL (80.0-100.0); MONOCYTES 9.5 %; MPV 9.4 fl. (7.2-11.1); NUCLEATED RBCS 0 /100WBC; PLATELET COUNT* 209 thou/uL (150-400); RBC 4.02 mil/uL (4.50-6.00); RDW-CV 12.8 % (10.5-14.5); WBC 6.4 thou/uL (4.0-11.0)
[2020-12-25 04:15] LABS: CALCIUM 8.7 mg/dL (8.5-10.1); CREATININE 0.9 mg/dL (0.6-1.3); TOTAL BILIRUBIN 0.5 mg/dL (<0.1-1.0); TOTAL PROTEIN 7.2 g/dL (6.4-8.2)
[2020-12-25 08:00] VITALS: BP 135/88
--- NOTE | 2020-12-25 09:45 | NUR ---
MAGNESIUM 400 MG PO ADMINISTERED
--- NOTE | 2020-12-25 11:55 | NUR ---
MAGNESIUM 400 MG PO ADMINISTERED
[2020-12-25 16:51] VITALS: BP 113/67
[2020-12-25 19:30] VITALS: BP 152/84
--- NOTE | 2020-12-25 19:31 | NUR ---
PT. AOX4, VSS, DENIES PAIN OR DISCOMFORT, TOLERATED 4 HOURS OOB TO CHAIR, PT ENCOURAGED TO TURN Q2 AND OOB. PT. IN BED, IN STABLE CONDITION, CALL LIGHT AND PERSONAL BELONGINGS PLACED WITHIN REACH, AT SHIFT CHANGE.
[2020-12-26] VITALS: BP 147/97
--- NOTE | 2020-12-26 06:21 | NUR ---
PT A&OX4, VSS ON ROOM AIR, IV SALINE LOCKED, UP WITH ASSIST, GB & WALKER. NO CO PAIN OR DISCOMFORT. MAGNESIUM 1.5 AT 2020; MG REPLACED, BLOOD REDRAW AT 0358 MG STILL 1.5, ANOTHER ROUND OF MG REPLACEMENT STARTED. PT SLEEPING WELL, WILL CONTINUE TO MONITOR.
[2020-12-26 08:00] VITALS: BP 128/81
[2020-12-26 09:14] VITALS: BP 128/81
[2020-12-26] MEDS ORDERED: DOXYCYCLINE 10100 MG PO (10:36)
--- NOTE | 2020-12-26 12:28 | NUR ---
Pt discharging back to [facility]. Faxed dc orders. Chart copied. Nurse report number is [phone]. Left VM for Pt's son, per Pt, he and son are estranged. [facility] to picked edge sewing machine operator between 3-330. Faxed resumption hospice order to [facility].
== END 2020-12-26 15:16 | DRG 177 ==
LOC: M.ERS 08:52 → M.TBA-ER 11:08 → M.3W 11:08
PROVIDERS: Emergency Medicine; Internal Medicine; ADMIT Internal Medicine; ATTEND Internal Medicine
DX: J15.6 Pneumonia due to other Gram-negative bacteria (principal); N17.0 Acute kidney failure with tubular necrosis; E78.5 Hyperlipidemia, unspecified; Z20.822 Contact with and (suspected) exposure to COVID-19; I12.9 Hypertensive chronic kidney disease with stage 1 through stage 4 chronic kidney disease, or unspecified chronic kidney disease; N18.30 Chronic kidney disease, stage 3 unspecified; I48.91 Unspecified atrial fibrillation; Z79.01 Long term (current) use of anticoagulants; Z90.49 Acquired absence of other specified parts of digestive tract